=== PATIENT | male | born 1990 | race Caucasian/White ===

== ENCOUNTER 2020-03-03 13:12 | Emergency (ER) | payer SELFPAY ==
[2020-03-03 13:19] VITALS: BP 191/98
--- NOTE | 2020-03-03 13:38 | ER Document Report ---
ED Medical Screen (RME) - General Chief Complaint: Hand Injury Stated Complaint: LEFT HAND INJURY Time Seen by Provider: 03/03/20 13:36 Primary Care Provider: LB MERAZ [Primary Care Provider] - Follow up as needed Mode of Arrival: Wheelchair Information source: Patient Notes: 29-year-old male presented to ED for laceration to the third and fourth finger on the left hand. He states he got them caught in a lawnmower. There is injury to both nails. Both fingers are bleeding. He is alert oriented respirations regular nonlabored speaking in full sentences. Will need tetanus immunizations. Will get x-ray order tetanus and Augmentin at this time and he will be seen by 1 of the providers. I have greeted and performed a rapid initial assessment of this patient. A comprehensive ED assessment and evaluation of the patient, analysis of test results and completion of medical decision making process will be conducted by an additional ED providers. Physical Exam - Vital signs Vitals: Temp Pulse Resp BP Pulse Ox 97.8 F 105 H 16 191/98 H 100 03/03/20 13:18 03/03/20 13:18 03/03/20 13:18 03/03/20 13:18 03/03/20 13:18 Course - Vital Signs Vital signs: Temp Pulse Resp BP Pulse Ox 97.8 F 105 H 16 191/98 H 100 03/03/20 13:18 03/03/20 13:18 03/03/20 13:18 03/03/20 13:18 03/03/20 13:18 Doctor's Discharge - Discharge Referrals: LB MERAZ [Primary Care Provider] - Follow up as needed
[2020-03-03] MEDS ORDERED: IBUPROFEN 800 MG TABLET PO ONE (13:39)
[2020-03-03] MEDS ORDERED: DIPH/PERTUSS(ACELL)/TETANUS VAC/PF 0.5 ML SYR (>=10YO) IM ONE (13:39)
[2020-03-03] MEDS ORDERED: AMOXICILLIN TR/POT CLAVULANATE 875-125 MG TAB PO ONE (13:39)
--- NOTE | 2020-03-03 15:12 | RADIOLOGY REPORT (SQ) ---
EXAM DESCRIPTION: HAND LEFT 3 VIEWS IMAGES COMPLETED DATE/TIME: 03/03/2020 2:41 pm REASON FOR STUDY: Injuries to the distal end of third and fourth fin COMPARISON: None. EXAM PARAMETERS: NUMBER OF VIEWS: Three views. TECHNIQUE: AP, lateral and oblique radiographic images acquired of the left hand. LIMITATIONS: None. FINDINGS: MINERALIZATION: Normal. BONES: Comminuted fracture distal phalanx of the 4th digit. No fracture of the 3rd digit. JOINTS: No effusions. SOFT TISSUES: No soft tissue swelling. No foreign body. OTHER: No other significant finding. IMPRESSION: Comminuted fracture distal phalanx 4th digit. TECHNICAL DOCUMENTATION: JOB ID: [id number] 2010 [employer]- All Rights Reserved Reading location - IP/workstation name: [email or web address]
[2020-03-03] MEDS ORDERED: LIDOCAINE 2% INJ (20 MG/ML) 20 ML MDV INJ ONE (15:44)
[2020-03-03] MEDS ORDERED: OXYCODONE-ACETAMINOPHEN 5-325 MG TABLET PO ONE (15:44)
--- NOTE | 2020-03-03 15:58 | ER Document Report ---
ED General - General Chief Complaint: Finger Injury Stated Complaint: LEFT HAND INJURY Time Seen by Provider: 03/03/20 13:36 Primary Care Provider: LB MERAZ [NO LOCAL MD] - Follow up as needed Mode of Arrival: Wheelchair Notes: Presents with left hand injury third and fourth fingers with a lawnmower lifting up his fourth fingernail. Bleeding controlled no numbness no tingling tetanus is been given. Pain is moderate to severe, associate with some bleeding and no numbness no tingling. Nonradiating. - Related Data Allergies/Adverse Reactions: No Known Allergies Allergy (Verified 03/03/20 14:10) Past Medical History - General Information source: Patient - Social History Smoking Status: Current Every Day Smoker Chew tobacco use (# tins/day): No Smoking Education Provided: Yes - The patient ED visit today was directly related to their abuse of tobacco. Frequency of alcohol use: None Drug Abuse: None Family History: None Review of Systems - Review of Systems Notes: REVIEW OF SYSTEMS GEN: Denies fever, chills, weight loss ENT: Denies sore throat, nasal discharge, ear pain EYES: Denies blurry vision, eye pain, discharge CV: Denies chest pain, palpitations, edema RESP: Denies cough, shortness of breath, wheezing GI: Denies abdominal pain, nausea, vomiting, diarrhea MSK: See HPI SKIN: Denies rash, skin lesions LYMPH: Denies swollen glands/lymph nodes NEURO: Denies headache, focal weakness or numbness, dizziness PSYCH: Denies depression, suicidal or homicidal ideation PHYSICAL EXAMINATION General: No acute distress, well-nourished Head: Atraumatic, normocephalic ENT: Mouth normal, oropharynx moist, lips normal Eyes: Conjunctiva normal, pupils equal, lids normal Neck: No JVD, supple, no guarding Resp: No resp distress, equal chest rise GI: Nondistended, no guarding Back: No midline or CVA tenderness Ext: distal finger lacerations 1 to 2 cm involving the finger pads in the nailbed specially on the fourth digit which goes underneath the nail. Skin: Well-perfused, no rash Neuro: Awake, alert. Face symmetric. Physical Exam - Vital signs Vitals: Temp Pulse Resp BP Pulse Ox 97.8 F 105 H 16 191/98 H 100 03/03/20 13:18 03/03/20 13:18 03/03/20 13:18 03/03/20 13:18 03/03/20 13:18 Course - Re-evaluation Re-evalutation: 03/03/20 18:51 Patient presents with laceration to the left third fourth digit including the finger pad and the nailbed on the left fourth digit with an open fracture. The patient does not appear intoxicated. We discussed x-ray numbing wound repair and antibiotic. Was given antibiotic in the ED He was given pain medication. On reexam I numbed him up and the tech irrigated him. Again he did not appear intoxicated. I was informed soon thereafter when I return to repair the lacerations the patient had eloped. He was given antibiotics previous to this, and prescription form, and I will attempt to reach out to him to return for laceration repair. I am unsure if he received his prescription or discharge instructions. - Vital Signs Vital signs: Temp Pulse Resp BP Pulse Ox 97.8 F 105 H 16 191/98 H 100 03/03/20 13:18 03/03/20 13:18 03/03/20 13:18 03/03/20 13:18 03/03/20 13:18 Discharge - Discharge Clinical Impression: Finger laceration with complication Qualifiers: Encounter type: initial encounter Qualified Code(s): S61.219A - Laceration wit hout foreign body of unspecified finger without damage to nail, initial encounter Phalanx, distal fracture of finger Qualifiers: Encounter type: initial encounter Finger: ring finger Fracture type: open Fracture alignment: nondisplaced Laterality: left Qualified Code(s): S62.665B - Nondisplaced fracture of distal phalanx of left ring finger, initial encounter for open fracture Condition: Good Disposition: HOME, SELF-CARE Instructions: Antibiotic Ointment Protection ([facility]), Laceration Care ([facility]), Prophylactic Antibiotic ([facility]), Tetanus Immunization Given ([facility]) Prescriptions: Cephalexin Monohydrate [Keflex 500 mg Capsule] 500 mg PO Q6H 5 Days capsule Referrals: LOCALMD,NO [NO LOCAL MD] - Follow up as needed
== END 2020-03-03 18:15 | disposition home or self-care (01) ==
LOC: ER 13:12
DX: S62.665B Nondisplaced fracture of distal phalanx of left ring finger, initial encounter for open fracture (principal); W31.89XA Contact with other specified machinery, initial encounter; Y93.H2 Activity, gardening and landscaping; F17.200 Nicotine dependence, unspecified, uncomplicated
CPT/HCPCS: 73130; 90715; J3490 ×2